=== PATIENT | female | born 1985 | race Caucasian/White ===

== ENCOUNTER 2019-03-14 18:12 | Emergency (ER) | payer MEDICAID ==
[~2019-03-14] VITALS: Ht 163.8 cm; Wt 95.7 kg
[2019-03-14 18:15] VITALS: BP 129/70
[2019-03-14 19:28] LABS: BASOPHILS % (AUTO) 0.4 % (0.0-2.0); EOSINOPHILS # (AUTO) 0.1 K/uL (0-0.4); EOSINOPHILS % (AUTO) 0.9 % (0.0-4.0); HEMATOCRIT 37.4 % (36-48); HEMOGLOBIN 12.7 g/dL (12.0-16.0); LYMPHOCYTES # (AUTO) 1.9 K/uL (2.5-16.5); MEAN CORPUSCULAR HEMOGLOBIN 30 pg (27-31); MEAN CORPUSCULAR HGB CONC 34 g/dL (33-37); MEAN CORPUSCULAR VOLUME 87.9 fL (80-94); MONOCYTES # (AUTO) 0.8 K/uL (0.8-1.0); MONOCYTES % (AUTO) 8.2 % (1.7-9.3); NEUTROPHILS # (AUTO) 6.6 K/uL (1.8-7.7); NEUTROPHILS % (AUTO) 70.5 % (42.2-75.2); PLATELET COUNT (AUTO) 235 K/uL (140-450); RED BLOOD CELL COUNT(AUTO) 4.25 MIL/uL (4.20-5.40); RED CELL DISTRIBUTION WIDTH 14.4 % (11.6-13.7); WHITE BLOOD COUNT (AUTO) 9.3 K/uL (4.8-10.8)
--- NOTE | 2019-03-14 19:37 | NUR ---
PATIENT PRESENTS TO er FOR DIZZINESS AND ABD PAIN WHEN AMBULATING. PATIENT CURRENTLY DENIES DIZZINESS. PATIENT IS AA&OX4. RESPIRATIONS EVEN AND UNLABORED. serena 05/03/2019, lmp 07/25/2018. . PENDING ACCU-CHECK. UPDATED ON POC, VERBALIZED UNDERSTANDING. WILL CONTINUE TO MONITOR.
[2019-03-14 19:52] LABS: ANION GAP 14.6 (8-16); CREATININE 0.5 mg/dL (0.6-1.3); POTASSIUM 3.6 mmol/L (3.5-5.1)
[2019-03-14 19:57] LABS: ALBUMIN 2.6 g/dL (3.4-5.0); TOTAL BILIRUBIN 0.7 mg/dL (0.0-1.0)
--- NOTE | 2019-03-14 20:07 | NUR ---
BLOOD SUGAR 83, MD MADE AWARE. UPDATED ON POC, VERBALIZED UNDERSTANDING. WILL CONTINUE TO MONITOR.
[2019-03-14 20:45] VITALS: BP 118/78
--- NOTE | 2019-03-14 20:46 | NUR ---
Patient discharged with v/s stable. Written and verbal after care instructions given and explained. Patient verbalized understanding. Ambulatory with steady gait. All questions addressed prior to discharge. Advised to follow up with PMD.
== END 2019-03-14 20:46 | disposition home or self-care (01) ==
LOC: MED 18:12
DX: O21.8 Other vomiting complicating pregnancy (principal); O26.893 Other specified pregnancy related conditions, third trimester; R42 Dizziness and giddiness; E11.9 Type 2 diabetes mellitus without complications; Z3A.33 33 weeks gestation of pregnancy
CPT/HCPCS: 36415; 80053; 81002; 81025; 82948; 85025; 99283